=== PATIENT | male | born 1960 | race Caucasian/White ===

== ENCOUNTER → 2016-09-25 | Outpatient (CLI) | payer OTHER ==
[~2016-09-25] MED LIST: CONTRAST GIVEN MC PRN; GADOBUTROL 7.5 MMOL/7.5 ML VIAL INT ART ONE; IOHEXOL 300 MG/ML 10ML VIAL. INT ART ONE; LIDOCAINE 1% Multi-Dose 20 ML VIAL. ID ONE
--- NOTE | 2016-09-25 15:59 | KCIC ---
Fluoroscopic guided right shoulder injection dated 09/25/2016: No comparison available. Clinical Indication: Gadolinium injection for MRI. Technical factors: The potential benefits and risks of the procedure were discussed with the patient and informed consent was obtained. The anterior right shoulder was prepped and draped in a sterile fashion. After local anesthesia, a 22-gauge spinal needle was inserted into the right shoulder joint using an anterior approach.Following negative aspiration, 15 cc's of a solution of 5cc Omnipaque contrast, 5 cc 1% lidocaine, 10 cc normal saline, and 0.1 cc gadolinium was injected without difficulty. The needle was then removed and a dry sterile dressing was applied. The patient was then sent to the MR suite for imaging. The patient tolerated the procedure well. Findings: Single fluoroscopic image shows needle tip at the medial inferior 1/3 of the humeral head. Contrast material extends into the joint space. 00:26 fluoroscopic time used for the exam. Impression: Fluoroscopic guided right shoulder injection for MRI as described above. Electronically signed by: Suresh Ashley MD (09/25/2016 3:56 PM)
--- NOTE | 2016-09-25 16:37 | KCIC ---
MR arthrogram right shoulder dated 09/25/2016. No comparison available. CLINICAL INDICATION: Shoulder pain and limited range of motion. Technique: Fat-saturated T1 weighted imaging performed in the coronal, axial and abduction external rotation planes following the intra-articular injection of dilute gadolinium. Injection portion of the study will be reported separately. In addition, standard T2-weighted imaging performed in 3 planes along with a nonfat saturated T1 sagittal sequence. FINDINGS: Adequate distention of the joint space with contrast material. Linear defect through the posterior superior labrum extends from approximately 12:00 to 9:00. There is also blunted morphology of the anterior inferior labrum. Mild thinning of the glenoid articular cartilage with no full-thickness cartilage defect. There are 2 or 3 tiny paralabral cyst along the anterior superior labral margin, measuring 2 to 3 mm in size each. The glenohumeral ligaments are intact. Mild degenerative change at the glenohumeral humeral joint. No loose body. Intermediate T2 signal within the substance of the long head biceps tendon proximally. Extra articular portion courses within the bicipital groove. Intermediate T2 signal throughout the supraspinatus and infraspinatus portions of the rotator cuff. There is also involvement of the subscapularis. A small full-thickness tear of the upper margin of the subscapularis is best seen on the axial sequences with torn portion of the tendon retracted to the level of the joint. No biceps tendon subluxation at this time. Mild to moderate hypertrophic change of the AC joint. Mild undersurface spurring of the distal clavicle and acromion. Small amount of subacromial/subdeltoid bursal fluid with contrast material at the subdeltoid deltoid bursa. Suprascapular and spinoglenoid notches are clear. No significant muscle edema or muscle atrophy. No bone marrow edema. IMPRESSION: 1. SLAP tear of the posterior superior labrum extending from 9:00 to 12:00. There are small perilabral cysts anteriorly. 2. Mild degenerative change of the glenohumeral joint with degenerative fraying of the inferior labrum. 3. Rotator cuff tendinopathy with small full-thickness tear of the upper subscapularis tendon. Small amount of contrast at the subdeltoid bursa. 4. Mild biceps tendinopathy. 5. [id number] AC joint arthropathy with mild undersurface spurring. Electronically signed by: Suresh Ashley MD (09/25/2016 4:34 PM)
== END | disposition home or self-care (01) ==
LOC: KCIC 14:02
PROVIDERS: ATTEND Family Medicine
DX: M25.511 Pain in right shoulder (principal); G89.29 Other chronic pain
CPT/HCPCS: 73040; 73222; Q9967; A9585